=== PATIENT | female | born 1965 | race Two or more races ===

== ENCOUNTER 2018-06-09 18:09 | Emergency (ER) | payer BC, OTHER ==
[~2018-06-09] VITALS: Ht 157.5 cm; Wt 62.6 kg
[~2018-06-09 18:09] MED LIST: FENO54TA PO; INSU100V8 SQ; LEVO75TA5 PO; METF500T16 PO
[2018-06-09] MEDS ORDERED: IV NORMAL SALINE 1000ML BAG 1,000 ML IV ONE (19:15)
[2018-06-09 19:28] LABS: BASO # 0.1 x10^3/uL (0.0-0.2); BASO % 1 % (0-3); EOS # 0.2 x10^3/uL (0.0-0.7); EOS % 1 % (0-3); HEMOGLOBIN 11.1 g/dL (12.0-15.5); LYMPH # 2.7 x10^3/uL (1.0-4.8); LYMPH % 21 % (24-48); MEAN CORPUSCULAR HEMOGLOBIN 20 pg (25-35); MEAN CORPUSCULAR HGB CONC 32 g/dL (31-37); MEAN CORPUSCULAR VOLUME 62 fL (79-100); MONO # 0.9 x10^3/uL (0.0-1.1); MONO % 7 % (0-9); NEUT # 9.3 x10^3uL (1.8-7.7); NEUT % 71 % (31-73); PLATELET COUNT 151 x10^3/uL (140-400); RED BLOOD COUNT 5.64 x10^6/uL (3.50-5.40); RED CELL DISTRIBUTION WIDTH 15.1 % (11.5-14.5); WHITE BLOOD COUNT 13.1 x10^3/uL (4.0-11.0)
[2018-06-09 19:43] LABS: BILIRUBIN,URINE NEGATIVE (NEG); CLARITY,URINE CLOUDY; COLOR,URINE AMBER; NITRITE,URINE POSITIVE (NEG); PROTEIN,URINE 100 mg/dL (NEG-TRACE)
[2018-06-09] MEDS ORDERED: KETOROLAC 15 MG/ML VIAL. IV ONE (19:45)
[2018-06-09] MEDS ORDERED: METOCLOPRAMIDE HCL 10 MG/2 ML VIAL. IV ONE (19:45)
--- NOTE | 2018-06-09 19:53 | PHYS DOC ---
Past Medical History Past Medical History: Diabetes-Type II, High Cholesterol, Hypothyroid Past Surgical History: Other Additional Past Surgical Histo: tumor removed from ovary Smokin Pack Per Day Alcohol Use: None Drug Use: None Adult General Chief Complaint Chief Complaint: ABDOMINAL PAIN HPI HPI Patient is a 52 YO F that is presenting with a one day history of LLQ abdominal pain. She describes the pain as sharp, radiates to the back and down her left leg, worse when bearing down, unaffected by movement, and she says that it is a 10/10 on the pain scale. She states that she took ibuprofen for the pain. She has a history of diabetes with peripheral neuropathy, she reports having an appendectomy and ovarian tumor removed. She reports some nausea and constipation but denies vomiting, diarrhea, fever, chills, blood in her urine and stool. She denies trauma. Review of Systems Review of Systems Constitutional: Denies fever or chills [] Eyes: Denies change in visual acuity, redness, or eye pain [] HENT: Denies nasal congestion or sore throat [] Respiratory: Denies cough or shortness of breath [] Cardiovascular: Denies chest pain or palpitations [] GI: Reports abdominal pain, nausea, and constipation, denies diarrhea and vomiting [] : Denies dysuria or hematuria [] Musculoskeletal: Reports back pain, denies joint pain [] Integument: Denies rash or skin lesions [] Neurologic: Denies headache, focal weakness or sensory changes [] Complete systems were reviewed and found to be within normal limits, except as documented in this note. Current Medications Current Medications Current Medications Medications (Trade) Dose Ordered Sig/Tosha Start Time Stop Time Status Last Admin Dose Admin Ceftriaxone Sodium (Rocephin) 1 gm 1X ONCE 06/09/18 21:00 06/09/18 21:01 DC 06/09/18 21:07 1 GM Ketorolac Tromethamine (Toradol 15mg Vial) 15 mg 1X ONCE 06/09/18 19:45 06/09/18 19:48 DC 06/09/18 19:57 15 MG Metoclopramide HCl (Reglan Vial) 10 mg 1X ONCE 06/09/18 19:45 06/09/18 19:48 DC 06/09/18 19:57 10 MG Sodium Chloride 1,000 ml @ 1,000 mls/hr 1X ONCE 06/09/18 19:15 1/26/19 20:14 DC 06/09/18 19:22 1,000 MLS/HR Allergies Allergies Allergies Coded Allergies Type Severity Reaction Last Updated Verified No Known Drug Allergies 10/26/13 No Physical Exam Physical Exam Constitutional: Well developed, well nourished, no acute distress, non-toxic appearance. [] HENT: Normocephalic, atraumatic, nose normal. [] Eyes: Conjunctiva normal, no discharge. [] Neck: Normal range of motion, no tenderness. [] Cardiovascular: Heart rate regular rhythm, no murmur [] Lungs & Thorax: Bilateral breath sounds clear to auscultation [] Abdomen: Soft, tenderness to palpation in the LLQ that radiates to her back and down her leg, mild anterior bruising from insulin injections [] Skin: Warm, dry, no erythema, no rash. [] Back: Paraspinal tenderness on the left lumbar spine, no midline tenderness. [] Extremities: No tenderness, no edema, negative straight leg raise. [] Neurologic: Alert and oriented X 3, no focal deficits noted. [] Psychologic: Affect normal, judgement normal, mood normal. [] Current Patient Data Vital Signs Vital Signs Date Time Temp Pulse Resp B/P (MAP) Pulse Ox O2 Delivery O2 Flow Rate FiO2 06/09/18 21:09 72 18 94/47 (63) 96 Room Air 06/09/18 18:50 98.2 98.2 Lab Values Laboratory Tests Test 06/09/18 18:48 06/09/18 19:12 Urine Collection Type Unknown Urine Color Ramila Urine Clarity Cloudy Urine pH 6.0 Urine Specific [place] 1.025 Urine Protein 100 mg/dL (NEG-TRACE) Urine Glucose (UA) Negative mg/dL (NEG) Urine Ketones (Stick) Negative mg/dL (NEG) Urine Blood Large (NEG) Urine Nitrite Positive (NEG) Urine Bilirubin Negative (NEG) Urine Urobilinogen Dipstick 1.0 mg/dL (0.2 mg/dL) Urine Leukocyte Esterase Large (NEG) Urine RBC Tntc /HPF (0-2) Urine WBC Tntc /HPF (0-4) Urine Squamous Epithelial Cells Few /LPF Urine Bacteria Many /HPF (0-FEW) White Blood Count 13.1 x10^3/uL (4.0-11.0) H Red Blood Count 5.64 x10^6/uL (3.50-5.40) H Hemoglobin 11.1 g/dL (12.0-15.5) L Hematocrit 35.0 % (36.0-47.0) L Mean Corpuscular Volume 62 fL (79-100) L Mean Corpuscular Hemoglobin 20 pg (25-35) L Mean Corpuscular Hemoglobin Concent 32 g/dL (31-37) Red Cell Distribution Width 15.1 % (11.5-14.5) H Platelet Count 151 x10^3/uL (140-400) Neutrophils (%) (Auto) 71 % (31-73) Lymphocytes (%) (Auto) 21 % (24-48) L Monocytes (%) (Auto) 7 % (0-9) Eosinophils (%) (Auto) 1 % (0-3) Basophils (%) (Auto) 1 % (0-3) Neutrophils # (Auto) 9.3 x10^3uL (1.8-7.7) H Lymphocytes # (Auto) 2.7 x10^3/uL (1.0-4.8) Monocytes # (Auto) 0.9 x10^3/uL (0.0-1.1) Eosinophils # (Auto) 0.2 x10^3/uL (0.0-0.7) Basophils # (Auto) 0.1 x10^3/uL (0.0-0.2) Platelet Estimate Adequate (ADEQUATE) Giant Platelets Occ Hypochromasia Marked Microcytosis Marked Tear Drop Cells Occ Sodium Level 137 mmol/L (136-145) Potassium Level 3.6 mmol/L (3.5-5.1) Chloride Level 101 mmol/L (98-107) Carbon Dioxide Level 27 mmol/L (21-32) Anion Gap 9 (6-14) Blood Urea Nitrogen 29 mg/dL (7-20) H Creatinine 0.7 mg/dL (0.6-1.0) Estimated GFR (Cockcroft-Gault) 87.5 BUN/Creatinine Ratio 41 (6-20) H Glucose Level 215 mg/dL (70-99) H Calcium Level 9.3 mg/dL (8.5-10.1) Magnesium Level 1.9 mg/dL (1.8-2.4) Total Bilirubin 0.5 mg/dL (0.2-1.0) Aspartate Amino Transferase (AST) 75 U/L (15-37) H Alanine Aminotransferase (ALT) 437 U/L (14-59) H Alkaline Phosphatase 194 U/L (46-116) H Total Protein 7.4 g/dL (6.4-8.2) Albumin 3.6 g/dL (3.4-5.0) Albumin/Globulin Ratio 0.9 (1.0-1.7) L Lipase 146 U/L (73-393) Laboratory Tests 06/09/18 19:12 Laboratory Tests 06/09/18 19:12 EKG EKG [] Radiology/Procedures Radiology/Procedures PROCEDURE: CT ABDOMEN PELVIS WO CONTRAST CT study of the abdomen and pelvis without contrast Clinical indications: Left flank pain and left lower quadrant abdominal pain. Possible urinary tract stone. TECHNIQUE: Noncontrast helical CT scanning of the abdomen and pelvis was performed. Without contrast, the sensitivity to detect organ pathology and GI tract pathology is decreased. PQRS compliance Statement One or more of the following individualized dose reduction techniques were utilized for this study: 1. Automated exposure control 2. Adjustment of the mA and/or kV according to patient size 3. Use of iterative reconstruction technique COMPARISON: October 26, 2013. FINDINGS: The liver and spleen and pancreas are homogeneous in appearance on this noncontrast study. Small gallstone is seen within the gallbladder. No extrahepatic biliary ductal dilatation is seen. No adrenal mass is evident. No urinary tract stone or hydronephrosis or hydroureter is evident. Urinary bladder is not abnormally distended. No focal aneurysmal dilatation of the abdominal aorta is seen. No enlarged abdominal or pelvic lymphadenopathy is evident. There is moderate fecal retention throughout the colon and mild fecal retention within the rectosigmoid region. No bowel wall thickening is seen. No pericolonic inflammatory change is seen. No obstructive bowel pattern is seen. No free air or free fluid or mesenteric edema is seen. The appendix is not identified but there are no secondary findings of appendicitis. A calcified granuloma is seen on the right side. Dependent atelectasis is seen bilaterally. No lytic process is evident. IMPRESSION: Small gallstone is seen within the gallbladder. No acute abnormality of the abdomen or pelvis is seen. There is moderate fecal retention within the colon and mild fecal retention within the rectosigmoid region. Electronically signed by: Tong Howard MD (06/09/2018 8:32 PM) [facility] Course & Med Decision Making Course & Med Decision Making Pertinent Labs and Imaging studies reviewed. (See chart for details) Patient is a 52 YO F that is presenting with LLQ abdominal pain. Labs were obtained and posted to chart. AST and ALT were elevated, 75 and 437, we discussed the need to have this re-evaluated with her PCP within the next 2-4 days. White count was 13.1. CT scan showed mild constipation and a small gallstone within the gall bladder. UA was positive for nitrites, many RBC's, many WBC's, and positive CVA tenderness. Antibiotics were started. Pain addressed. Dragon Disclaimer Dragon Disclaimer This electronic medical record was generated, in whole or in part, using a voice recognition dictation system. Departure Departure Impression: Primary Impression: Pyelonephritis Additional Impressions: Constipation Elevated liver enzymes Disposition: HOME, SELF-CARE Condition: STABLE Referrals: ABBE DELGADILLO (PCP) Patient Instructions: Constipation, Adult, [id number], Pyelonephritis, Adult , [id number] Additional Instructions: Can use OTC Advil or Tylenol for pain and discomfort Your liver enzymes were elevated, AST 75 and ALT 437, this should be reevaluated by your PCP within the next 2-4 days Scripts Cephalexin (KEFLEX) 500 Mg Capsule 500 MG PO TID for 7 Days, #21 CAP Prov: CRISS MUNIZ DO 06/09/18 Problem Qualifiers Additional Impressions: Constipation Constipation type: unspecified constipation type Qualified Codes: K59.00 - Constipation, unspecified CRISS MUNIZ DO Jun 09, 2018 19:53
[2018-06-09 19:59] LABS: RBC,URINE TNTC /HPF (0-2); WBC,URINE TNTC /HPF (0-4)
[2018-06-09 20:00] LABS: BACTERIA,URINE MANY /HPF (0-FEW); SQUAMOUS EPITHELIAL CELL,UR FEW /LPF
[2018-06-09 20:02] LABS: CALCIUM 9.3 mg/dL (8.5-10.1); CREATININE 0.7 mg/dL (0.6-1.0); GFR 87.5; POTASSIUM 3.6 mmol/L (3.5-5.1)
[2018-06-09 20:08] LABS: ALBUMIN 3.6 g/dL (3.4-5.0); ALBUMIN/GLOBULIN RATIO 0.9 (1.0-1.7); MAGNESIUM 1.9 mg/dL (1.8-2.4); TOTAL BILIRUBIN 0.5 mg/dL (0.2-1.0); TOTAL PROTEIN 7.4 g/dL (6.4-8.2)
--- NOTE | 2018-06-09 20:36 | RAD ---
CT study of the abdomen and pelvis without contrast Clinical indications: Left flank pain and left lower quadrant abdominal pain. Possible urinary tract stone. TECHNIQUE: Noncontrast helical CT scanning of the abdomen and pelvis was performed. Without contrast, the sensitivity to detect organ pathology and GI tract pathology is decreased. PQRS compliance Statement One or more of the following individualized dose reduction techniques were utilized for this study: 1. Automated exposure control 2. Adjustment of the mA and/or kV according to patient size 3. Use of iterative reconstruction technique COMPARISON: October 26, 2013. FINDINGS: The liver and spleen and pancreas are homogeneous in appearance on this noncontrast study. Small gallstone is seen within the gallbladder. No extrahepatic biliary ductal dilatation is seen. No adrenal mass is evident. No urinary tract stone or hydronephrosis or hydroureter is evident. Urinary bladder is not abnormally distended. No focal aneurysmal dilatation of the abdominal aorta is seen. No enlarged abdominal or pelvic lymphadenopathy is evident. There is moderate fecal retention throughout the colon and mild fecal retention within the rectosigmoid region. No bowel wall thickening is seen. No pericolonic inflammatory change is seen. No obstructive bowel pattern is seen. No free air or free fluid or mesenteric edema is seen. The appendix is not identified but there are no secondary findings of appendicitis. A calcified granuloma is seen on the right side. Dependent atelectasis is seen bilaterally. No lytic process is evident. IMPRESSION: Small gallstone is seen within the gallbladder. No acute abnormality of the abdomen or pelvis is seen. There is moderate fecal retention within the colon and mild fecal retention within the rectosigmoid region. Electronically signed by: Tong Howard MD (06/09/2018 8:32 PM) [facility]
[2018-06-09 21:00] LABS: PLT ESTIMATE ADEQUATE (ADEQUATE)
[2018-06-09] MEDS ORDERED: cefTRIAXone IV Push 1 GM VIAL. IVP ONE (21:00)
[2018-06-09 21:01] LABS: HYPOCHROMIA MARKED; MICROCYTOSIS MARKED; TEAR DROP CELLS OCC
[2018-06-09 21:09] VITALS: BP 94/47
[2018-06-09] MEDS ORDERED: CEPH-264 PO (21:19)
== END 2018-06-09 21:41 | disposition home or self-care (01) ==
LOC: ER 18:09
DX: N12 Tubulo-interstitial nephritis, not specified as acute or chronic (principal); K59.00 Constipation, unspecified; R74.8 Abnormal levels of other serum enzymes; R10.32 Left lower quadrant pain; K80.20 Calculus of gallbladder without cholecystitis without obstruction; M54.5 Low back pain; E78.00 Pure hypercholesterolemia, unspecified; E03.9 Hypothyroidism, unspecified; F17.200 Nicotine dependence, unspecified, uncomplicated; E11.42 Type 2 diabetes mellitus with diabetic polyneuropathy; Z90.89 Acquired absence of other organs
CPT/HCPCS: 36415; 74176; 80053; 81001; 83690; 83735; 85025; 87086; 96374; 96375; 99284; J0696; J1885; J2765; J7030; 96361

== ENCOUNTER 2019-06-08 13:25 | Emergency (ER) | payer SELFPAY ==
[~2019-06-08] VITALS: Ht 157.5 cm; Wt 61.0 kg
[~2019-06-08 13:25] MED LIST changes: +CEPH-264 PO
[2019-06-08 13:53] VITALS: BP 188/74
--- NOTE | 2019-06-08 14:59 | RAD ---
FOOT LEFT 3V History: Pain after a fall Comparison: None FINDINGS: 3 views of the left foot are submitted. Precise site of pain is not indicated. No acute fracture is identified by radiographs. Impression: 1. No acute osseous abnormality is identified by radiographs. Electronically signed by: Cr Petersen MD (06/08/2019 2:56 PM) [facility]
--- NOTE | 2019-06-08 15:23 | PHYS DOC ---
Past Medical History Past Medical History: Diabetes-Type II, High Cholesterol, Hypothyroid Past Surgical History: Other Additional Past Surgical Histo: tumor removed from ovary Alcohol Use: None Drug Use: None Adult General Chief Complaint Chief Complaint: MECHANICAL FALL HPI HPI Patient is a 53 year old [female] who presents with [left foot pain. Patient reports she had slipped on the ice approximately 10 days ago, with her right leg sliding forward and her left leg and foot passing backwards. States she landed on her left knee, has little discomfort in it still, has some pain to her posterior left hip, and has some worse discomfort to the bottom of her right foot and to her ankle bilaterally. States she has taken ibuprofen and it has helped a little with her discomfort. States she is able to walk on it, but continues to have discomfort when walking. ] Review of Systems Review of Systems Constitutional: Denies fever or chills [] Eyes: Denies change in visual acuity, redness, or eye pain [] HENT: Denies nasal congestion or sore throat [] Respiratory: Denies cough or shortness of breath [] Cardiovascular: No additional information not addressed in HPI [] GI: Denies abdominal pain, nausea, vomiting, bloody stools or diarrhea [] : Denies dysuria or hematuria [] Musculoskeletal: Denies back pain reports left hip, left knee, left foot and ankle pain.[] Integument: Denies rash or skin lesions [] Neurologic: Denies headache, focal weakness or sensory changes [] Endocrine: Denies polyuria or polydipsia [] All other systems were reviewed and found to be within normal limits, except as documented in this note. Allergies Allergies Allergies Coded Allergies Type Severity Reaction Last Updated Verified No Known Drug Allergies 10/26/13 No Physical Exam Physical Exam Constitutional: Well developed, well nourished, no acute distress, non-toxic appearance. [] Cardiovascular:Heart rate regular rhythm, no murmur [] Lungs & Thorax: Bilateral breath sounds clear to auscultation [] Skin: Warm, dry, no erythema, no rash. [] Back: No tenderness, no CVA tenderness. [] Extremities: No tenderness, no cyanosis, no clubbing, ROM intact, no edema. Patient with full ROM to hip, able to raise, flex and extend without noted discomfort. Able to flex and extend knee. Able to flex and extend ankle. indicating discomfort to bilateral malleolus and to heel of left foot. No erythema, no lesions, no deformity, no injury noted. [] Neurologic: Alert and oriented X 3, normal motor function, normal sensory function, no focal deficits noted. [] Psychologic: Affect normal, judgement normal, mood normal. [] Current Patient Data Vital Signs Vital Signs Date Time Temp Pulse Resp B/P (MAP) Pulse Ox O2 Delivery O2 Flow Rate FiO2 06/08/19 13:53 98.6 86 17 188/74 (112) 100 Room Air 98.6 EKG EKG [] Radiology/Procedures Radiology/Procedures []FOOT LEFT 3V History: Pain after a fall Comparison: None FINDINGS: 3 views of the left foot are submitted. Precise site of pain is not indicated. No acute fracture is identified by radiographs. Impression: 1. No acute osseous abnormality is identified by radiographs. Electronically signed by: Cr Petersen MD (06/08/2019 2:56 PM) [facility] Course & Med Decision Making Course & Med Decision Making Pertinent Labs and Imaging studies reviewed. (See chart for details) [] Dragon Disclaimer Dragon Disclaimer This electronic medical record was generated, in whole or in part, using a voice recognition dictation system. Departure Departure Impression: Primary Impression: Sprain and strain of deltoid (ligament) of ankle Disposition: 01 HOME, SELF-CARE Condition: GOOD Referrals: UNKNOWN PCP NAME (PCP) Patient Instructions: Ankle Sprain Additional Instructions: As we discussed, wear the brace on your ankle to help your ligaments re- stabilized. Continue to use ice as needed. Continue to take ibuprofen for discomfort. If you continue to have discomfort after another 2 weeks, follow up with your primary care provider and consider Orthopedics follow up. Pearsall hablemos, usar el Brace cada vez que esta caminando o en pie a luis enrique los ligamentos mas tiempo curar. Usar Hielo para dolor tambien. Para los sigiente 5 duval, clair Ibuprofeno, 3 pastillas (200 mg cada) cada 8 horas. Arlene ayuda con inflamacion y dolor tambien. Y si en 2 semanas despues usando el Brace tenga dolor todavia, habla con bustos medico y daniel si ellos puede recomendar un orthopedia. Problem Qualifiers Primary Impression: Sprain and strain of deltoid (ligament) of ankle Encounter type: initial encounter Laterality: left Qualified Codes: S93.422A - Sprain of deltoid ligament of left ankle, initial encounter SESAR BURGOS APRN Jun 08, 2019 15:23
== END 2019-06-08 15:52 | disposition home or self-care (01) ==
LOC: ER 13:25
DX: S93.422A Sprain of deltoid ligament of left ankle, initial encounter (principal); M25.562 Pain in left knee; M79.672 Pain in left foot; M25.552 Pain in left hip; E11.9 Type 2 diabetes mellitus without complications; E78.00 Pure hypercholesterolemia, unspecified; E03.9 Hypothyroidism, unspecified; Z98.890 Other specified postprocedural states; W00.2XXA Other fall from one level to another due to ice and snow, initial encounter; Y93.89 Activity, other specified; Y92.89 Other specified places as the place of occurrence of the external cause; Y99.8 Other external cause status
CPT/HCPCS: 73630; 99284; L4350